=== PATIENT | male | born 1955 | race Caucasian/White ===

== ENCOUNTER → 2016-12-15 11:24 | Emergency (ER) | payer BC ==
[~2016-12-15 11:24] MED LIST: Aspirin Low Dose CHEW TAB* 81 MG PO ONE
--- NOTE | 2016-12-15 13:33 | RAD ---
HISTORY: Bigeminy COMPARISONS: None VIEWS: 1: frontal portable view of the chest at 12:53 PM. The left costophrenic angle is cut off. FINDINGS: LINES AND TUBES: None. CARDIOMEDIASTINAL SILHOUETTE: The cardiomediastinal silhouette is normal for portable technique. PLEURA: The right costophrenic angle is sharp. No pleural abnormalities are noted. LUNG PARENCHYMA: The lungs are clear. ABDOMEN: The upper abdomen is clear. There is no subphrenic gas. BONES AND SOFT TISSUES: No bone or soft tissue abnormalities are noted. IMPRESSION: LIMITED STUDY. NO ACTIVE CARDIOPULMONARY DISEASE.
[2016-12-15 13:53] LABS: Hematocrit 42 % (42-52); Mean Corpuscular HGB Conc 36 g/dl (31-36); Mean Corpuscular Hemoglobin 32 pg (27-31); Mean Corpuscular Volume 89 fL (80-94); Mean Platelet Volume 8 um3 (7.4-10.4); Red Blood Count 4.72 10^6/ul (4.0-5.4); Red Cell Distribution Width 13 % (10.5-15)
[2016-12-15 14:07] LABS: Albumin 3.7 g/dL (3.2-5.2); Calcium 8.6 mg/dL (8.6-10.3); EGFR Non-African American 76.2 (>60); Globulin 2.7 g/dL (2-4); Magnesium 2.1 mg/dL (1.9-2.7); Potassium 3.4 mmol/L (3.5-5.0); Total Bilirubin 0.8 mg/dL (0.2-1.0); Total Protein 6.4 g/dL (6.4-8.9)
[2016-12-15 14:09] LABS: Troponin I 0.01 ng/mL (<0.04)
[2016-12-15 14:49] VITALS: BP 120/60
[2016-12-15 14:56] LABS: T4 8.51 mcg/mL (6.09-12.23)
[2016-12-15 15:03] LABS: TSH (Thyroid Stimulating Horm) 1.65 mcIU/mL (0.34-5.60)
--- NOTE | 2016-12-16 13:31 | ED ---
Delvis Low Nilda, scribed for Holland Ibrahim MD on 12/15/16 at 1403 . HPI Cardiac - HPI Summary HPI Summary: This patient is a 61 year old M presenting to [facility] with a chief complaint of bigeminy since this morning. At 0730 patient had a colonoscopy when it was noticed. The patient rates the pain 0/10 in severity. Patient reports feeling normal. Patient denies cardiac symptoms, pulmonary symptoms, vascular edema, and dizziness. No other significant PMHx. - History of Current Complaint Chief Complaint: EDDysrhythmPalp Stated Complaint: ARRHYTHMIA Time Seen by Provider: 12/15/16 13:09 Hx Obtained From: Patient Onset/Duration: Started Hours Ago Current Severity: None Pain Intensity: 0 Pain Scale Used: 0-10 Numeric Character: Other: - bigeminy Aggravating Factor(s): Nothing Alleviating Factor(s): Spontaneous Resolution Associated Signs and Symptoms: Positive: Other: - Patient reports feeling normal. Patient denies cardiac symptoms, pulmonary symptoms, vascular edema, and dizziness. - Allergy/Home Medications Allergies/Adverse Reactions: Allergies Allergy/AdvReac Type Severity Reaction Status Date / Time No Known Allergies Allergy Verified 12/15/16 12:08 PMH/Surg Hx/FS Hx/Imm Hx Endocrine/Hematology History: Denies: Hx Anticoagulant Therapy, Hx Blood Disorders, Hx Diabetes, Hx Systemic Lupus Erythematosus, Hx Thyroid Disease, Hx Anemia, Hx Unexplained Bleeding Cardiovascular History: Denies: Hx Peripheral Vascular Disease Respiratory History: Denies: Hx Asthma, Hx Seasonal Allergies Musculoskeletal History: Denies: Hx Arthritis Infectious Disease History: No Infectious Disease History: Denies: Traveled Outside the [place] in Last 30 Days - Family History Known Family History: Positive: Diabetes Negative: Hypertension - Social History Alcohol Use: Occasionally Substance Use Type: Reports: None Smoking Status (MU): Never Smoked Tobacco Review of Systems Negative: Fever, Chills Negative: Erythema Negative: Sore Throat Positive: Other - bigeminy. Negative: Chest Pain Negative: Shortness Of Breath, Cough Negative: Abdominal Pain, Vomiting, Nausea Negative: dysuria, hematuria Negative: Myalgia, Edema Negative: Rash Neurological: Negative - negative dizziness All Other Systems Reviewed And Are Negative: Yes Physical Exam - Summary Physical Exam Summary: Constitutional: Well-developed, Well-nourished, Alert. (-) Distressed Skin: Warm, Dry HENT: Normocephalic; Atraumatic Eyes: Conjunctiva normal Neck: Musculoskeletal ROM normal neck. (-) JVD, (-) Stridor, (-) Tracheal deviation Cardio: Rhythm regular, rate normal, Heart sounds normal; Intact distal pulses; The pedal pulses are 2+ and symmetric. Radial pulses are 2+ and symmetric. (-) Murmur Pulmonary/Chest wall: Effort normal. (-) Respiratory distress, (-) Wheezes, (-) Rales Abd: Soft, (-) Tenderness, (-) Distension, (-) Guarding, (-) Rebound Musculoskeletal: (-) Edema Lymph: (-) Cervical adenopathy Neuro: Alert, Oriented x3 Psych: Mood and affect Normal Triage Information Reviewed: Yes Vital Signs On Initial Exam: Initial Vitals BP 136/98 12/15/16 11:40 Vital Signs Reviewed: Yes - [place] Coma Scale Coma Scale Total: 15 Diagnostics - Vital Signs Vital Signs Temp Pulse Resp BP Pulse Ox 12/15/16 12:08 98.4 F 58 16 139/81 98 12/15/16 12:02 53 12 139/81 98 12/15/16 12:01 65 95 12/15/16 11:40 136/98 - Laboratory Result Diagrams: 12/15/16 13:37 12/15/16 13:37 Lab Statement: Any lab studies that have been ordered have been reviewed, and results considered in the medical decision making process. - Radiology CXR Radiology Interpretation Completed By: Radiologist - Limited study. No active cardiopulmonary disease. ED physcian reviewed report and agrees. - EKG 1128 Cardiac Rate: NL - 54 bpm EKG Rhythm: Sinus Rhythm EKG Interpretation: no STEMI Re-Evaluation - Re-Evaluation First Eval Re-Evaluation Time: 15:00 Comment: Patient has no symptoms. Disposition - Course Assessment/Plan: This patient is a 61 year old M presenting to [facility] with a chief complaint of bigeminy since this morning. At 0730 patient had a colonoscopy when it was noticed. The patient rates the pain 0/10 in severity. Patient reports feeling normal. Patient denies cardiac symptoms, pulmonary symptoms, vascular edema, and dizziness. No other significant PMHx. EKG reveals NSR, 54 bpm, and no STEMI. CXR reveals limited study. No active cardiopulmonary disease. ED physician reviewed report and agrees. Asymptomatic episode of bigeminy. Theres no indication for further work up or emergency admission. Patient will be discharged with a diagnosis of bigeminy and follow up from PCP in 2-3 days. The patient is agreeable with this plan. - Diagnoses Provider Diagnoses: Bigeminy Discharge - Discharge Plan Condition: Stable Disposition: HOME Referrals: Hernando Cummings MD [Primary Care Provider] - 3 Days Additional Instructions: RETURN TO THE EMERGENCY DEPARTMENT FOR CHANGING OR WORSENING SYMPTOMS. The documentation as recorded by the Delvis parks Nilda accurately reflects the service I personally performed and the decisions made by , Holland Ibrahim MD.
== END | disposition home or self-care (01) ==
LOC: ED 11:24
DX: I49.3 Ventricular premature depolarization (principal)
CPT/HCPCS: 36415; 71010; 80053; 83605; 83735; 84436; 84443; 84484; 85025; 93005; 99282